=== PATIENT | female | born 1980 | race African-American/Black ===

== ENCOUNTER 2020-08-05 14:38 | Emergency (ER) | payer SELFPAY ==
[~2020-08-05] VITALS: Ht 162.6 cm; Wt 75.0 kg
[2020-08-05 15:33] LABS: BASOPHILS % 1.1 % (0.0-2.0); EOSINOPHILS % 0.5 % (0.0-5.0); HEMATOCRIT. 40.3 % (36.0-48.0); HEMOGLOBIN. 13.4 g/dL (12.0-16.0); LYMPHOCYTES % 29.3 % (20.0-50.0); MEAN CORPUSCULAR HEMOGLOBIN 34.3 pg (28.0-32.0); MEAN CORPUSCULAR VOLUME 102.9 fL (81.0-99.0); MEAN PLATELET VOLUME 7.4 fl (7.4-10.4); MONOCYTES % 8.8 % (2.0-8.0); NEUTROPHILS % 60.3 % (40.0-76.0); PLATELET 297 x1000/uL (130-400); RED BLOOD CELL COUNT 3.92 mill/uL (4.2-5.4); RED CELL DISTRIBUTION WIDTH 15.1 % (11.6-14.6)
[2020-08-05 15:34] LABS: CHLORIDE 105 mEq/L (98-107)
[2020-08-05 16:09] LABS: CLARITY URINE CLOUDY (CLEAR); COLOR URINE DARK YELLOW (YELLOW); KETONES URINE TRACE (NEGATIVE); LEUKOCYTE ESTERASE URINE 2+ (NEGATIVE); NITRITE URINE NEGATIVE (NEGATIVE); OCCULT BLOOD URINE TRACE (NEGATIVE); PROTEIN URINE 3+ (NEGATIVE); SPECIFIC GRAVITY URINE 1.035 (1.005-1.030)
[2020-08-05] MEDS ORDERED: AMOXICILLIN 500 MG CAPSULE PO ONE (16:30)
[2020-08-05] MEDS ORDERED: AMLODIPINE 5MG TABLET PO ONE ×2 (16:30→17:15)
[2020-08-05] MEDS ORDERED: CLONIDINE 0.1MG TABLET PO ONE (17:15)
[2020-08-05 17:47] VITALS: BP 208/158
== END 2020-08-05 17:59 | disposition home or self-care (01) ==
LOC: ER 15:02
DX: N10 Acute pyelonephritis (principal); I16.1 Hypertensive emergency
CPT/HCPCS: 36415; 80053; 81003; 81025; 85025; 93005; 99284